=== PATIENT | female | born 1980 | race Caucasian/White ===

== ENCOUNTER 2016-08-12 14:24 | Emergency (ER) | payer SELFPAY ==
[2016-08-12] MEDS ORDERED: OPTIRAY 350 100 ML VIAL HMH IV ONE (14:25)
[2016-08-12] MEDS ORDERED: PROMETHAZINE 25 MG/ML VIAL ONE (16:13)
[2016-08-12] MEDS ORDERED: SODIUM CHLORIDE 0.9% 1,000 ML ONE (16:14)
[2016-08-12] MEDS ORDERED: SODIUM CHLORIDE 0.9% 50 ML IV ONE (16:14)
[2016-08-12] MEDS ORDERED: DILAUDID 1 MG/ML AMP ONE (17:32)
== END 2016-08-12 19:32 | disposition home or self-care (01) ==
LOC: ER 14:24
DX: K56.0 Paralytic ileus (principal); R10.32 Left lower quadrant pain; R42 Dizziness and giddiness
CPT/HCPCS: 36415; 74177; 80053; 81001; 83690; 84703; 85025; 87088; 87804; 96361; 96365; 96375